=== PATIENT | male | born 1935 | race Caucasian/White ===

== ENCOUNTER → 2020-08-27 | Outpatient (CLI) | payer MEDICARE ==
[~2020-08-27] MED LIST: ASPI81TA45 PO; CBD Oil PO; CELE100C PO; NIFE90TA8 PO
== END | disposition home or self-care (01) ==
LOC: STAR 09:24
PROVIDERS: ATTEND Surgery
DX: Z01.812 Encounter for preprocedural laboratory examination (principal); Z20.822 Contact with and (suspected) exposure to COVID-19; K40.90 Unilateral inguinal hernia, without obstruction or gangrene, not specified as recurrent; I44.4 Left anterior fascicular block
CPT/HCPCS: 93005; U0003

== ENCOUNTER 2020-09-02 11:42 | Day surgery (SDC) | payer MEDICARE ==
[~2020-09-02] VITALS: Ht 167.6 cm; Wt 63.0 kg
[2020-09-02] MEDS ORDERED: CHLORHEXIDINE 15 ML UDC PO ONE (12:00)
[2020-09-02] MEDS ORDERED: LACTATED RINGERS 1,000 ML IV SCH (12:00)
[2020-09-02] MEDS ORDERED: CHLORHEXIDINE 15 ML UDC ONE (12:01)
[2020-09-02] MEDS ORDERED: EPINEPHRINE 1 MG/ML, 1ML ONE (13:37)
[2020-09-02] MEDS ORDERED: BUPIVACAINE/PF 0.5% ONE (13:37)
[2020-09-02] MEDS ORDERED: FENTANYL PF 250 MCG/5ML ONE (13:54)
[2020-09-02] MEDS ORDERED: DEXAMETHASONE 4 MG/ML, 1ML ONE (14:01)
[2020-09-02] MEDS ORDERED: PROPOFOL 10 MG/ML, 20ML ONE (14:01)
[2020-09-02] MEDS ORDERED: ONDANSETRON 2MG/ML, 2ML ONE (14:01)
[2020-09-02] MEDS ORDERED: CEFAZOLIN 1,000 MG ONE (14:01)
[2020-09-02] MEDS ORDERED: ROCURONIUM 10 MG/ML,10ML ONE (14:01)
[2020-09-02] MEDS ORDERED: HYDR-1067 PO (15:27)
[2020-09-02] MEDS ORDERED: ONDA4TAB7 PO (15:27)
[2020-09-02] MEDS ORDERED: LABETALOL 5MG/ML, 20ML IV PRN (15:30)
[2020-09-02] MEDS ORDERED: DIPHENHYDRAMINE 50 MG/ML, 1ML IVPush PRN (15:30)
[2020-09-02] MEDS ORDERED: ACETAMINOPHEN 325 MG TABLET PO PRN (15:30)
[2020-09-02] MEDS ORDERED: METHOCARBAMOL 1,000 MG in DEXTROSE 5% 100 ML IV PRN (15:30)
[2020-09-02] MEDS ORDERED: PROMETHAZINE 25 MG SUPP PR PRN (15:30)
[2020-09-02] MEDS ORDERED: HYDROmorphone 1 MG/ML, 1ML INJ IVPush PRN (15:30)
[2020-09-02] MEDS ORDERED: ONDANSETRON 2MG/ML, 2ML IVPush PRN ×2 (15:30)
[2020-09-02] MEDS ORDERED: HYDROcodone/APAP 5/325 TABLET PO PRN (15:30)
[2020-09-02] MEDS ORDERED: morphine SULFATE 10 MG/ML, 1ML IVPush PRN (15:30)
[2020-09-02] MEDS ORDERED: ENOXAPARIN 40 MG/0.4 ML SQ SCH (15:30)
[2020-09-02] MEDS ORDERED: FENTANYL PF 100 MCG/2ML IV PRN (15:30)
[2020-09-02] MEDS ORDERED: KETOROLAC 30 MG/1 ML IVPush PRN (15:30)
[2020-09-02] MEDS ORDERED: hydrALAzine 20 MG/ML, 1ML IV PRN (15:30)
[2020-09-02] MEDS ORDERED: PROMETHAZINE 25 MG/ML, 1ML IVPush PRN (15:30)
[2020-09-02] MEDS ORDERED: ACETAMINOPHEN 650 MG/20.3 ML UDC ONE (15:43)
[2020-09-02] MEDS ORDERED: OXYcodone 5 MG/5 ML ORAL.SOL UDC ONE (15:43)
[2020-09-02] MEDS: OXYcodone 5 MG/5 ML ORAL.SOL UDC PO PRN ×2 (15:44→15:49)
[2020-09-02] MEDS ORDERED: hydrALAzine 20 MG/ML, 1ML ONE (15:53)
[2020-09-02] MEDS ORDERED: niFEDipine ER 90 MG TAB.ER.24 PO ONE (17:24)
== END 2020-09-02 17:55 | disposition home or self-care (01) ==
LOC: OUT 11:42
PROVIDERS: ATTEND Surgery
DX: K40.20 Bilateral inguinal hernia, without obstruction or gangrene, not specified as recurrent (principal); K66.0 Peritoneal adhesions (postprocedural) (postinfection); I10 Essential (primary) hypertension; E78.5 Hyperlipidemia, unspecified; M19.90 Unspecified osteoarthritis, unspecified site; Z79.82 Long term (current) use of aspirin; Z79.899 Other long term (current) drug therapy; Z72.89 Other problems related to lifestyle; Z82.49 Family history of ischemic heart disease and other diseases of the circulatory system
CPT/HCPCS: 49650; J0171; J0690; J1100; J2405; J2704; J3010; J7120; C1781